=== PATIENT | female | born 1960 | race Caucasian/White ===

== ENCOUNTER 2018-04-01 17:26 | Emergency (ER) | payer OTHER ==
[~2018-04-01] VITALS: Ht 165.1 cm; Wt 68.0 kg
[~2018-04-01 17:26] MED LIST: FLEXERIL5 MG PO; MEDROL DOSEPAK4 MG PO; MOTRIN800 MG PO; NORCO 325 MG-51 TAB PO; PREDNICOT10 MG PO; TORADOL10 MG PO; ULTRAM50 MG PO
[2018-04-01] MEDS ORDERED: PREVACID30 M2 PO (17:33)
[2018-04-01] MEDS ORDERED: SINGULAIR10 M1 PO (17:34)
[2018-04-01] MEDS ORDERED: NAPROSYN500 MG PO (17:56)
[2018-04-01] MEDS ORDERED: CHLORZOXAZONE500 M2 PO (17:56)
== END 2018-04-01 20:30 | disposition home or self-care (01) ==
LOC: ED 17:26
DX: S13.9XXA Sprain of joints and ligaments of unspecified parts of neck, initial encounter (principal); R51 Headache; R03.0 Elevated blood-pressure reading, without diagnosis of hypertension; Z88.2 Allergy status to sulfonamides; Z79.899 Other long term (current) drug therapy; Z90.49 Acquired absence of other specified parts of digestive tract; V89.2XXA Person injured in unspecified motor-vehicle accident, traffic, initial encounter; Y93.89 Activity, other specified; Y92.488 Other paved roadways as the place of occurrence of the external cause; Y99.8 Other external cause status

== ENCOUNTER 2019-06-10 10:27 | Emergency (ER) | payer OTHER ==
[~2019-06-10] VITALS: Ht 162.5 cm; Wt 81.6 kg
[~2019-06-10 10:27] MED LIST changes: +CHLORZOXAZONE500 M2 PO; +NAPROSYN500 MG PO; +PREVACID30 M2 PO; +SINGULAIR10 M1 PO
[2019-06-10 11:05] LABS: BASO % 0.6 % (0.0-1.0); EOS # 0.1 10*3/uL (0.0-0.4); HEMATOCRIT 42.9 % (37.0-47.0); HEMOGLOBIN 14.3 g/dl (12.0-16.0); LYMPH # 1.8 10*3/uL (1.3-4.4); MEAN CELL VOLUME 95.8 fl (81.0-99.0); MEAN CORPUSCULAR HGB 31.9 pg (27.0-31.0); MEAN CORPUSCULAR HGB CONC 33.3 g/dl (33.0-37.0); MEAN PLATELET VOLUME 10.1 fl (9.6-12.3); MONO # 0.5 10*3/uL (0.1-1.0); NEUT # 3.9 10*3/uL (2.3-7.9); NEUT % 61.1 % (47.0-73.0); PLATELET COUNT AUTOMATED 215 10*3/uL (130-400); RED BLOOD COUNT 4.48 10*6/uL (4.10-5.10); RED CELL DISTRI WIDTH 12.5 % (0-14.5); WHITE BLOOD COUNT 6.4 10*3/uL (4.8-10.8)
[2019-06-10 11:22] LABS: ALBUMIN 3.7 gm/dl (3.1-4.5); ALKALINE PHOSPHATASE 73 U/L (45-117); BUN 14 mg/dl (7-24); CHLORIDE 111 mmol/L (98-107); CREATININE 0.86 mg/dL (0.55-1.02); LIPASE 96 U/L (73-393); POTASSIUM 3.9 mmol/L (3.5-5.1); SGOT/AST 10 IU/L (3-35); SGPT/ALT 22 U/L (12-78); SODIUM 141 mmol/L (136-145); TOTAL PROTEIN 7.2 gm/dL (6.4-8.2)
[2019-06-10 11:58] LABS: BILIRUBIN NEGATIVE (NEGATIVE); BLOOD 1+ (NEGATIVE); CLARITY SL CLOUDY (CLEAR); COLOR YELLOW (YELLOW); GLUCOSE NEGATIVE (NEGATIVE); KETONE NEGATIVE (NEGATIVE); LEUKO ESTERASE NEGATIVE (NEGATIVE); NITRITE NEGATIVE (NEGATIVE); UROBILINOGEN 0.2 E.U./dl (0.2-1.0)
[2019-06-10 12:12] LABS: RBC 31-40 rbc/hpf (0-2)
[2019-06-10 12:13] LABS: BACTERIA 1+; MUCOUS 1+
[2019-06-10] MEDS ORDERED: ZYRTEC10 MG PO (13:30)
[2019-06-10] MEDS ORDERED: ROBITUSSIN DM 105 ML PO (13:30)
[2019-06-10] MEDS ORDERED: PREDNISONE50 MG PO (13:30)
== END 2019-06-10 13:57 | disposition home or self-care (01) ==
LOC: ED 10:27
PROVIDERS: Nurse Practitioner Family
DX: B34.9 Viral infection, unspecified (principal); R11.2 Nausea with vomiting, unspecified; F17.200 Nicotine dependence, unspecified, uncomplicated; Z88.2 Allergy status to sulfonamides; Z79.899 Other long term (current) drug therapy; Z90.49 Acquired absence of other specified parts of digestive tract

== ENCOUNTER 2019-12-19 12:29 | Inpatient (IN) | payer OTHER ==
[~2019-12-19] VITALS: Ht 165.1 cm; Wt 81.8 kg
[~2019-12-19 12:29] MED LIST changes: +PREDNISONE50 MG PO; +ROBITUSSIN DM 105 ML PO; +ZYRTEC10 MG PO
[2019-12-19 12:52] VITALS: BP 153/103
[2019-12-19 14:18] LABS: BASO % 0.4 % (0.0-1.0); EOS # 0.1 10*3/uL (0.0-0.4); EOS % 1.3 % (1.0-4.0); LYMPH # 1.8 10*3/uL (1.3-4.4); LYMPH % 26.9 % (27.0-41.0); MEAN CELL VOLUME 92.2 fl (81.0-99.0); MEAN CORPUSCULAR HGB CONC 33.6 g/dl (33.0-37.0); MEAN PLATELET VOLUME 10.6 fl (9.6-12.3); MONO # 0.5 10*3/uL (0.1-1.0); MONO % 7.9 % (3.0-9.0); NEUT # 4.3 10*3/uL (2.3-7.9); NEUT % 63.2 % (47.0-73.0); PLATELET COUNT AUTOMATED 254 10*3/uL (130-400); RED BLOOD COUNT 4.77 10*6/uL (4.10-5.10); RED CELL DISTRI WIDTH 12.6 % (0-14.5); WHITE BLOOD COUNT 6.9 10*3/uL (4.8-10.8)
[2019-12-19 15:13] LABS: ALBUMIN 3.5 gm/dl (3.1-4.5); ALKALINE PHOSPHATASE 79 U/L (45-117); BUN 15 mg/dl (7-24); CHLORIDE 113 mmol/L (98-107); CREATININE 0.79 mg/dL (0.55-1.02); LDH 124 U/L (84-246); LIPASE 56 U/L (73-393); POTASSIUM 3.2 mmol/L (3.5-5.1); SGOT/AST 9 IU/L (3-35); SGPT/ALT 24 U/L (12-78); SODIUM 142 mmol/L (136-145); TOTAL PROTEIN 7.2 gm/dL (6.4-8.2)
[2019-12-19 15:14] LABS: TROPONIN I < 0.015 ng/ml (<0.045)
--- NOTE | 2019-12-19 15:51 | NUR ---
PT HAD A BOWL MOVEMENT IN THAT BEDSIDE WITH A HAT THAT WAS PROVIDED, UNABLE TO OBTAIN URINE AT THIS TIME.
[2019-12-19 15:52] VITALS: BP 141/88
--- NOTE | 2019-12-19 16:39 | NUR ---
DR LUCIA IN WITH PT. PT WILL BE TRANSFERED TO ROOM 410 WHEN HE IS FINISHED.
[2019-12-19 17:14] VITALS: BP 155/84
--- NOTE | 2019-12-19 17:14 | NUR ---
A 58, admitted to 4E, under the services of GEORGE Curry DO with a diagnosis of DIARHEA. Chief complaint is CHILLS, DIARHEA. Patient arrived via stretcher from ER. Monitor applied. Initial assessment completed. Vital signs taken and recorded. GEORGE CURRY DO notified of admission to the unit. Orders received. See assessment for past medical history, medications and allergies. Patient and/or family oriented to unit. TELEMETRY 410 visitation policy reviewed. Clothing/patient valuable form completed. PARMJIT ASHTON
--- NOTE | 2019-12-19 19:00 | NUR ---
ASSUMED CARE FOR THIS PT AT THIS TIME. PT AMBULATING T/O ROOM. PT DENIES ANY SOB AND/OR COUGH. C/O ABD CRAMPING INTERMITTENT AND DIARRHEA BUT NONE SINCE SHE CAME UP TO THE FLOOR. PT REMINDED OF NEED FOR URINE SAMPLE. CALL LIGHT IN REACH. PT ADVISED NOT TO PULL CURTAIN D/T CAMERA AND NEED FOR STAFF TO BE ABLE TO SEE PT.
[2019-12-19] MEDS ORDERED: IBUPROFEN600 MG PO (19:22)
[2019-12-19] MEDS ORDERED: MIRALAX119 GM PO (19:23)
[2019-12-19] MEDS ORDERED: PROTONIX40 MG PO (19:23)
[2019-12-19] MEDS ORDERED: LORAZEPAM0.5 MG PO (19:25)
--- NOTE | 2019-12-19 19:32 | NUR ---
CALL PLACED TO DR. KAPLAN OFFICE SPOKE WITH ADDISON ADVISED OF CONSULT FOR SUSPECTED COVID.
--- NOTE | 2019-12-19 21:26 | NUR ---
PT STATES NORCO WAS INEFFECTIVE FOR H/A RELIEF. OFFERED AND ACCEPTED TYLENOL.
--- NOTE | 2019-12-19 22:47 | NUR ---
PT MEDICATED W/TYLENOL FOR CONTINUED C/O H/A. SNACKS OFFERED AND ACCEPTED. PT ADVISED TO CALL NURSES STATION VS USING CALL LIGHT D/T DIFF HEARING VIA CALL LIGHT. PT ACKNOWLEDGES. PHONE IN REACH.
[2019-12-19 23:09] LABS: BILIRUBIN NEGATIVE (NEGATIVE); BLOOD 3+ (NEGATIVE); CLARITY CLEAR (CLEAR); COLOR YELLOW (YELLOW); GLUCOSE NEGATIVE (NEGATIVE); KETONE 1+ (NEGATIVE); NITRITE NEGATIVE (NEGATIVE); UROBILINOGEN 0.2 E.U./dl (0.2-1.0)
[2019-12-19 23:11] LABS: LEUKO ESTERASE NEGATIVE (NEGATIVE)
[2019-12-19 23:16] LABS: RBC 21-30 rbc/hpf (0-2)
[2019-12-19 23:17] LABS: BACTERIA 1+; MUCOUS 1+; YEAST 1+
--- NOTE | 2019-12-19 23:47 | NUR ---
PT RESTING QUIETLY IN BED. NO S/S OF DISTRESS NOTED.
[2019-12-20] VITALS: BP 144/86
[2019-12-20 06:12] LABS: BASO % 0.4 % (0.0-1.0); EOS # 0.1 10*3/uL (0.0-0.4); EOS % 2.8 % (1.0-4.0); HEMATOCRIT 36.8 % (37.0-47.0); LYMPH # 2.1 10*3/uL (1.3-4.4); LYMPH % 41.4 % (27.0-41.0); MEAN CORPUSCULAR HGB 30.5 pg (27.0-31.0); MEAN CORPUSCULAR HGB CONC 33.2 g/dl (33.0-37.0); MEAN PLATELET VOLUME 10.6 fl (9.6-12.3); MONO # 0.5 10*3/uL (0.1-1.0); MONO % 9.4 % (3.0-9.0); NEUT # 2.3 10*3/uL (2.3-7.9); NEUT % 45.8 % (47.0-73.0); PLATELET COUNT AUTOMATED 206 10*3/uL (130-400); RED CELL DISTRI WIDTH 12.7 % (0-14.5)
[2019-12-20 06:29] LABS: CHLORIDE 115 mmol/L (98-107); POTASSIUM 3.7 mmol/L (3.5-5.1); SODIUM 143 mmol/L (136-145)
[2019-12-20 06:44] LABS: ALKALINE PHOSPHATASE 67 U/L (45-117); BUN 15 mg/dl (7-24); CHOLESTEROL 158 mg/dL (<200); CREATININE 0.66 mg/dL (0.55-1.02); HDL CHOLESTEROL 44 mg/dl (40-60); LDL CHOLESTEROL 90 mg/dL (9-159); SGOT/AST 12 IU/L (3-35); SGPT/ALT 22 U/L (12-78); TOTAL PROTEIN 6.2 gm/dL (6.4-8.2); TRIGLYCERIDES 120 mg/dl (<150); VLDL CHOLESTEROL 24 mg/dL (6-40)
[2019-12-20 07:21] LABS: VITAMIN D, 25-HYDROXY 65.4 ng/mL (30-100)
--- NOTE | 2019-12-20 07:24 | NUR ---
PT C/O NAUSEA AND H/A. MEDICATED W/ZOFRAN AND TYLENOL. NICOTENE PATCH PLACED ON LT SHOULDER.
[2019-12-20 08:00] VITALS: BP 103/84
[2019-12-20 12:00] VITALS: BP 122/82
--- NOTE | 2019-12-20 13:12 | NUR ---
Butt Presser in to talk to patient. Patient states lives at HOME with . There are 12 steps in the home. Physician: CLIFFORD Pharmacy: [facility] health services: NONE Patient's level of ADLs: INDEPENDENT Patient has working utilities: YES DME: NONE Follow-up physician's appointment after d/c: WILL BE MADE BY HOSPITALIST NURSE DIRECTOR ON DISCHARGE Does patient want to access PORTAL?: NO Discharge plan PT LIVES AT HOME WITH HER AND IS INDEPENDENT IN HIS CARE. DISCUSSED DISCHARGE NEEDS WITH PT BUT SHE DECLINES THEM AT THIS TIME. WILL CONTINUE TO FOLLOW. PLAN IS TO RETURN HOME WITH WHEN MEDICALLY STABLE. WILL HAVE A RIDE HOME PER PT.. DAJUAN WELSH
[2019-12-20 16:00] VITALS: BP 122/82
--- NOTE | 2019-12-20 17:13 | NUR ---
PT MEDICATED WITH PRN ZOFRAN FOR C/O NAUSEA. WILL MONITOR.
[2019-12-20 20:00] VITALS: BP 134/58
--- NOTE | 2019-12-20 22:53 | NUR ---
RN IN TO SEE PATIENT, DENIES ANY NEEDS AT THIS TIME. STATES WAS NAUSEATED EARLIER BUT IS FEELING BETTER NOW. PATIENT HAS BEEN LAUGHING AND PLAYING ON CELL PHONE AND HAS GOTTEN UP TO THE BATHROOM SEVEREAL TIMES SINCE START OF THIS SHIFT. CALL LIGHT IS WITHIN REACH OF PATIENT. RN WILL CONTINUE TO MONITOR
[2019-12-21] VITALS: BP 156/84
--- NOTE | 2019-12-21 00:30 | NUR ---
PATIENT MEDICATED WITH NORCO FOR COMPLAINTS OF HEADACHE THAT HAS WORSENED SINCE RECIEVING EARLIER PRN TYLENOL. RN WILL MONITOR FOR EFFECTIVENESS
--- NOTE | 2019-12-21 01:30 | NUR ---
PATIENT STATES EARLIER PAIN MEDICATION WAS EFFECTIVE
[2019-12-21 05:16] LABS: BUN 16 mg/dl (7-24); CHLORIDE 111 mmol/L (98-107); POTASSIUM 3.6 mmol/L (3.5-5.1); SODIUM 142 mmol/L (136-145)
[2019-12-21 05:59] LABS: BASO % 0.5 % (0.0-1.0); EOS # 0.2 10*3/uL (0.0-0.4); EOS % 2.6 % (1.0-4.0); LYMPH # 2.3 10*3/uL (1.3-4.4); LYMPH % 36.9 % (27.0-41.0); MEAN CELL VOLUME 91.8 fl (81.0-99.0); MEAN CORPUSCULAR HGB 30.7 pg (27.0-31.0); MEAN CORPUSCULAR HGB CONC 33.4 g/dl (33.0-37.0); MEAN PLATELET VOLUME 10.8 fl (9.6-12.3); MONO # 0.5 10*3/uL (0.1-1.0); MONO % 8.4 % (3.0-9.0); NEUT # 3.2 10*3/uL (2.3-7.9); NEUT % 51.6 % (47.0-73.0); PLATELET COUNT AUTOMATED 225 10*3/uL (130-400); RED BLOOD COUNT 4.14 10*6/uL (4.10-5.10); RED CELL DISTRI WIDTH 12.5 % (0-14.5); WHITE BLOOD COUNT 6.2 10*3/uL (4.8-10.8)
[2019-12-21 08:00] VITALS: BP 138/70
[2019-12-21] MEDS ORDERED: ZOFRAN4 MG PO (10:19)
--- NOTE | 2019-12-21 11:24 | NUR ---
PT DISCHARGED HOME AT THIS TIME. PRESCRIPTION AND FOLLOW UP CARE DISCUSSED.
== END 2019-12-21 11:13 | disposition home or self-care (01) | DRG 392 ==
LOC: ED 12:29 → EDHOLD 16:07 → 4E 16:07
PROVIDERS: Internal Medicine; Student in an Organized Health Care Education/Training Program; ADMIT Emergency Medicine
DX: K52.9 Noninfective gastroenteritis and colitis, unspecified (principal); E44.1 Mild protein-calorie malnutrition; E87.6 Hypokalemia; F17.210 Nicotine dependence, cigarettes, uncomplicated; E86.0 Dehydration; K21.9 Gastro-esophageal reflux disease without esophagitis; R31.9 Hematuria, unspecified; R82.71 Bacteriuria; E66.3 Overweight; E87.8 Other disorders of electrolyte and fluid balance, not elsewhere classified; B34.9 Viral infection, unspecified; R73.9 Hyperglycemia, unspecified; Z71.6 Tobacco abuse counseling; Z88.2 Allergy status to sulfonamides; Z90.49 Acquired absence of other specified parts of digestive tract; Z98.891 History of uterine scar from previous surgery; Z03.818 Encounter for observation for suspected exposure to other biological agents ruled out; Z82.49 Family history of ischemic heart disease and other diseases of the circulatory system; Z79.899 Other long term (current) drug therapy; Z79.52 Long term (current) use of systemic steroids; Z85.528 Personal history of other malignant neoplasm of kidney; Z85.51 Personal history of malignant neoplasm of bladder; Z85.828 Personal history of other malignant neoplasm of skin; Z68.29 Body mass index [BMI] 29.0-29.9, adult; Y92.89 Other specified places as the place of occurrence of the external cause; X39 Exposure to other forces of nature; Y93.89 Activity, other specified; Y99.8 Other external cause status

== ENCOUNTER 2020-11-09 21:01 | Emergency (ER) | payer OTHER ==
[~2020-11-09] VITALS: Ht 167.6 cm; Wt 72.6 kg
[~2020-11-09 21:01] MED LIST changes: +IBUPROFEN600 MG PO; +LORAZEPAM0.5 MG PO; +MIRALAX119 GM PO; +PROTONIX40 MG PO; +ZOFRAN4 MG PO
[2020-11-09 21:55] LABS: BASO % 0.2 % (0.0-1.0); EOS # 0.1 10*3/uL (0.0-0.4); EOS % 0.7 % (1.0-4.0); HEMATOCRIT 43.3 % (37.0-47.0); LYMPH # 2.2 10*3/uL (1.3-4.4); MEAN CELL VOLUME 93.9 fl (81.0-99.0); MEAN CORPUSCULAR HGB 30.8 pg (27.0-31.0); MEAN CORPUSCULAR HGB CONC 32.8 g/dl (33.0-37.0); MEAN PLATELET VOLUME 10.1 fl (9.6-12.3); MONO # 1.1 10*3/uL (0.1-1.0); MONO % 8.4 % (3.0-9.0); NEUT # 9.3 10*3/uL (2.3-7.9); NEUT % 73.2 % (47.0-73.0); PLATELET COUNT AUTOMATED 249 10*3/uL (130-400); RED BLOOD COUNT 4.61 10*6/uL (4.10-5.10); RED CELL DISTRI WIDTH 12.8 % (0-14.5); WHITE BLOOD COUNT 12.7 10*3/uL (4.8-10.8)
[2020-11-09 22:11] LABS: ALBUMIN 3.7 gm/dl (3.1-4.5); CREATININE 1.37 mg/dL (0.55-1.02); POTASSIUM 3.6 mmol/L (3.5-5.1); TOTAL PROTEIN 7.7 gm/dL (6.4-8.2)
[2020-11-09 23:00] LABS: BILIRUBIN Negative (Negative); BLOOD 2+ (Negative); CLARITY Cloudy (Clear); COLOR Yellow (Yellow); GLUCOSE Negative (Negative); KETONE Negative (Negative); LEUKO ESTERASE Negative (Negative); NITRITE Negative (Negative)
[2020-11-09 23:19] LABS: HYALINE CAST 16-20
[2020-11-09 23:20] LABS: BACTERIA TRACE
[2020-11-10] MEDS ORDERED: MEDROL DOSEPAK4 MG PO (02:11)
[2020-11-10] MEDS ORDERED: CYCLOBENZAPRINE10 MG PO (02:11)
== END 2020-11-10 02:32 | disposition home or self-care (01) ==
LOC: ED 21:01
PROVIDERS: Emergency Medicine
DX: M51.36 Other intervertebral disc degeneration, lumbar region (principal); K21.9 Gastro-esophageal reflux disease without esophagitis; Z88.2 Allergy status to sulfonamides; Z79.899 Other long term (current) drug therapy; Z90.49 Acquired absence of other specified parts of digestive tract; Z98.890 Other specified postprocedural states